=== PATIENT | female | born 1960 | race Caucasian/White ===

== ENCOUNTER 2022-03-14 18:20 | Inpatient (IN) | payer BC ==
[2022-03-14] MEDS: Carvedilol 3.125 MG TAB PO SCH (21:55)
[2022-03-14] MEDS: Gabapentin 400 MG CAP PO SCH (21:55)
[2022-03-14] MEDS: Hydroxychloroquine Sulfate 200 MG TAB PO SCH (21:55)
[2022-03-15 05:24] LABS: #Basophils 0.1 thou/uL (0.0-0.2); #Eosinphils 0.4 thou/uL (0.0-0.7); #Lymphocytes 1.1 thou/uL (1.20-3.40); #Monocytes 0.9 thou/uL (0.11-0.59); #Neutrophils 4.8 thou/uL (1.40-6.50); %Basophils 1.2 % (0.0-1.0); %Lymphocytes 14.7 % (21.0-51.0); %Monocytes 12.7 % (0.0-10.0); %Neutrophils 66.4 % (42.0-75.0); Hemoglobin 8.7 g/dL (12.0-16.0); Mean Corpuscular HGB CONC 33.7 g/dL (32.0-36.0); Mean Corpuscular Volume 97.9 fl (78.0-98.0); Mean Platelet Volume 9.6 fL (7.4-10.4); Platelet Count 222 10x3/uL (130-400); RBC Distribution Width 15.1 % (11.5-14.5); Red Blood Cell (RBC) Count 2.65 mill/uL (4.20-5.40); White Blood Cell (WBC) Count 7.2 10x3/uL (4.8-10.8)
[2022-03-15 05:56] LABS: Anion Gap 14 mmol/L (10-20); BUN (Urea Nitrogen) 16 mg/dL (9.8-20.1); Calc. Creatinine Clearance 83 mL/min (70-130); Calcium 8.7 mg/dL (7.8-10.44); Carbon Dioxide 24 mmol/L (23-31); Chloride 90 mmol/L (98-107); Estimated GFR 39; Glucose 74 mg/dL (80-115); Potassium 3.9 mmol/L (3.5-5.1); Sodium 124 mmol/L (136-145)
[2022-03-15] MEDS: predniSONE 5 MG TAB PO SCH (09:19)
[2022-03-15] MEDS: Potassium Chloride 10 MEQ TAB PO SCH (09:19)
[2022-03-15] MEDS: Spironolactone 25 MG TAB PO SCH (09:19)
[2022-03-15] MEDS: Hydroxychloroquine Sulfate 200 MG TAB PO SCH ×2 (09:20→20:12)
[2022-03-15] MEDS: Carvedilol 3.125 MG TAB PO SCH ×2 (09:20→20:12)
[2022-03-15] MEDS: Furosemide 40 MG TAB PO SCH (09:20)
[2022-03-15] MEDS: Gabapentin 400 MG CAP PO SCH ×3 (09:22→20:12)
[2022-03-16] MEDS: Spironolactone 25 MG TAB PO SCH (08:58)
[2022-03-16] MEDS: Carvedilol 3.125 MG TAB PO SCH ×2 (08:58→20:08)
[2022-03-16] MEDS: Gabapentin 400 MG CAP PO SCH ×3 (08:58→20:08)
[2022-03-16] MEDS: Hydroxychloroquine Sulfate 200 MG TAB PO SCH ×2 (08:59→20:08)
[2022-03-16] MEDS: Furosemide 40 MG TAB PO SCH (08:59)
[2022-03-16] MEDS: predniSONE 5 MG TAB PO SCH (08:59)
[2022-03-16] MEDS: Potassium Chloride 10 MEQ TAB PO SCH (09:02)
[2022-03-17] MEDS: Gabapentin 400 MG CAP PO SCH ×3 (09:07→20:19)
[2022-03-17] MEDS: Potassium Chloride 10 MEQ TAB PO SCH (09:07)
[2022-03-17] MEDS: Spironolactone 25 MG TAB PO SCH (09:07)
[2022-03-17] MEDS: Hydroxychloroquine Sulfate 200 MG TAB PO SCH ×2 (09:07→20:20)
[2022-03-17] MEDS: Furosemide 40 MG TAB PO SCH (09:07)
[2022-03-17] MEDS: Carvedilol 3.125 MG TAB PO SCH ×2 (09:07→20:20)
[2022-03-17] MEDS: predniSONE 5 MG TAB PO SCH (09:07)
[2022-03-17] MEDS: TOFACITINIB CITRATE 11 MG PO SCH (22:00)
[2022-03-18] MEDS: Carvedilol 3.125 MG TAB PO SCH ×2 (08:12→21:11)
[2022-03-18] MEDS: Potassium Chloride 10 MEQ TAB PO SCH (08:13)
[2022-03-18] MEDS: Gabapentin 400 MG CAP PO SCH ×3 (08:13→21:10)
[2022-03-18] MEDS: Spironolactone 25 MG TAB PO SCH (08:13)
[2022-03-18] MEDS: Hydroxychloroquine Sulfate 200 MG TAB PO SCH ×2 (08:13→21:10)
[2022-03-18] MEDS: predniSONE 5 MG TAB PO SCH (08:15)
[2022-03-18] MEDS: Furosemide 40 MG TAB PO SCH ×2 (10:30→13:58)
[2022-03-18] MEDS: TOFACITINIB CITRATE 11 MG PO SCH (21:15)
[2022-03-19 05:33] LABS: ALT (SGPT) 47 U/L (8-55); AST (SGOT) 43 U/L (5-34); Albumin 2.8 g/dL (3.4-4.8); Alkaline Phosphatase 71 U/L (40-110); Anion Gap 14 mmol/L (10-20); BUN (Urea Nitrogen) 18 mg/dL (9.8-20.1); Bilirubin, Total 1.8 mg/dL (0.2-1.2); Calc. Creatinine Clearance 69 mL/min (70-130); Calcium 8.8 mg/dL (7.8-10.44); Carbon Dioxide 26 mmol/L (23-31); Chloride 91 mmol/L (98-107); Estimated GFR 31; Globulin 2.8 g/dL (2.4-3.5); Glucose 71 mg/dL (80-115); Potassium 3.7 mmol/L (3.5-5.1); Protein, Total 5.6 g/dL (5.8-8.1); Sodium 127 mmol/L (136-145)
[2022-03-19 06:00] LABS: Band 5 % (5-11); Eosinophils 2 % (0-10); Hemoglobin 8.3 g/dL (12.0-16.0); Lymphocytes 14 % (21-51); MDiff Complete? YES; Mean Corpuscular HGB CONC 33.3 g/dL (32.0-36.0); Mean Platelet Volume 9.3 fL (7.4-10.4); Monocytes 8 % (0-10); Neutrophil 69 % (42-75); Platelet Count 229 10x3/uL (130-400); RBC Distribution Width 15.7 % (11.5-14.5); RBC Morphology Normal; Red Blood Cell (RBC) Count 2.51 mill/uL (4.20-5.40); White Blood Cell (WBC) Count 5.2 10x3/uL (4.8-10.8)
[2022-03-19] MEDS: Hydroxychloroquine Sulfate 200 MG TAB PO SCH ×2 (08:08→20:34)
[2022-03-19] MEDS: Carvedilol 3.125 MG TAB PO SCH ×2 (08:08→20:34)
[2022-03-19] MEDS: Potassium Chloride 10 MEQ TAB PO SCH (08:08)
[2022-03-19] MEDS: Spironolactone 25 MG TAB PO SCH (08:08)
[2022-03-19] MEDS: Gabapentin 400 MG CAP PO SCH ×2 (08:08→20:34)
[2022-03-19] MEDS: Furosemide 40 MG TAB PO SCH (13:13)
[2022-03-19] MEDS: TOFACITINIB CITRATE 11 MG PO SCH (20:35)
[2022-03-20] MEDS: Spironolactone 25 MG TAB PO SCH (08:44)
[2022-03-20] MEDS: Potassium Chloride 10 MEQ TAB PO SCH (08:44)
[2022-03-20] MEDS: Hydroxychloroquine Sulfate 200 MG TAB PO SCH ×2 (08:45→20:24)
[2022-03-20] MEDS: Carvedilol 3.125 MG TAB PO SCH ×2 (08:45→20:25)
[2022-03-20] MEDS: Gabapentin 400 MG CAP PO SCH ×2 (08:45→20:25)
[2022-03-20] MEDS: Furosemide 40 MG TAB PO SCH (13:01)
[2022-03-20] MEDS: TOFACITINIB CITRATE 11 MG PO SCH (20:25)
[2022-03-21] MEDS: Ondansetron ODT 4 MG TAB PO PRN (10:08)
[2022-03-21] MEDS: Hydroxychloroquine Sulfate 200 MG TAB PO SCH ×2 (11:18→20:48)
[2022-03-21] MEDS: Potassium Chloride 10 MEQ TAB PO SCH (11:18)
[2022-03-21] MEDS: Gabapentin 400 MG CAP PO SCH ×2 (11:18→20:49)
[2022-03-21] MEDS: Carvedilol 3.125 MG TAB PO SCH ×2 (11:18→20:49)
[2022-03-21] MEDS: TOFACITINIB CITRATE 11 MG PO SCH (20:49)
[2022-03-22] MEDS: Ondansetron ODT 4 MG TAB PO PRN ×2 (08:20→14:32)
[2022-03-22] MEDS: Carvedilol 3.125 MG TAB PO SCH (10:05)
[2022-03-22] MEDS: Hydroxychloroquine Sulfate 200 MG TAB PO SCH ×2 (10:07→20:35)
[2022-03-22] MEDS: Gabapentin 400 MG CAP PO SCH ×2 (10:07→20:35)
[2022-03-22] MEDS: Potassium Chloride 10 MEQ TAB PO SCH ×2 (10:07→13:24)
[2022-03-22] MEDS ORDERED: Furosemide 20 MG TAB PO SCH (13:00)
[2022-03-22] MEDS ORDERED: Furosemide 40 MG TAB PO SCH (13:00)
[2022-03-22] MEDS ORDERED: Potassium Chloride 10 MEQ TAB PO SCH (13:15)
[2022-03-22] MEDS: Furosemide 20 MG TAB PO SCH (13:23)
[2022-03-22] MEDS: TOFACITINIB CITRATE 11 MG PO SCH (20:37)
[2022-03-23] MEDS: Potassium Chloride 10 MEQ TAB PO SCH (07:44)
[2022-03-23] MEDS: Hydroxychloroquine Sulfate 200 MG TAB PO SCH ×2 (07:44→21:33)
[2022-03-23] MEDS: Gabapentin 400 MG CAP PO SCH ×2 (07:48→21:32)
[2022-03-23] MEDS: Furosemide 20 MG TAB PO SCH (12:15)
[2022-03-23] MEDS: Ondansetron ODT 4 MG TAB PO PRN (20:04)
[2022-03-23] MEDS ORDERED: Mag-Al Plus 1200 MG/1200 MG/120 MG/30 ML UDCUP PO PRN (21:21)
[2022-03-23] MEDS: Cyclobenzaprine 10 MG TAB PO PRN (21:33)
[2022-03-23] MEDS: TOFACITINIB CITRATE 11 MG PO SCH (21:34)
[2022-03-23] MEDS: traMADol HCl 50 MG TAB PO PRN (23:01)
[2022-03-24] MEDS: Gabapentin 400 MG CAP PO SCH ×2 (08:59→20:44)
[2022-03-24] MEDS: Hydroxychloroquine Sulfate 200 MG TAB PO SCH ×2 (08:59→20:43)
[2022-03-24] MEDS: Potassium Chloride 10 MEQ TAB PO SCH (08:59)
[2022-03-24] MEDS: Cyclobenzaprine 10 MG TAB PO PRN ×2 (10:08→20:43)
[2022-03-24] MEDS: Furosemide 20 MG TAB PO SCH (12:30)
[2022-03-24] MEDS: traMADol HCl 50 MG TAB PO PRN ×2 (12:32→20:44)
[2022-03-24] MEDS: TOFACITINIB CITRATE 11 MG PO SCH ×2 (20:45→20:48)
[2022-03-25] MEDS: Gabapentin 400 MG CAP PO SCH ×2 (09:16→21:26)
[2022-03-25] MEDS: Hydroxychloroquine Sulfate 200 MG TAB PO SCH ×2 (09:16→21:27)
[2022-03-25] MEDS: Potassium Chloride 10 MEQ TAB PO SCH (09:17)
[2022-03-25] MEDS: Cyclobenzaprine 10 MG TAB PO PRN ×2 (13:16→21:27)
[2022-03-25] MEDS: Furosemide 20 MG TAB PO SCH (13:17)
[2022-03-25] MEDS: traMADol HCl 50 MG TAB PO PRN (18:35)
[2022-03-25] MEDS: TOFACITINIB CITRATE 11 MG PO SCH (21:25)
[2022-03-26 05:40] LABS: Anion Gap 15 mmol/L (10-20); BUN (Urea Nitrogen) 12 mg/dL (9.8-20.1); Calc. Creatinine Clearance 65 mL/min (70-130); Calcium 9.1 mg/dL (7.8-10.44); Carbon Dioxide 25 mmol/L (23-31); Chloride 91 mmol/L (98-107); Estimated GFR 30; Glucose 65 mg/dL (80-115); Potassium 3.9 mmol/L (3.5-5.1); Sodium 127 mmol/L (136-145)
[2022-03-26] MEDS: traMADol HCl 50 MG TAB PO PRN ×2 (06:14→22:01)
[2022-03-26] MEDS: Cyclobenzaprine 10 MG TAB PO PRN ×2 (06:14→22:01)
[2022-03-26] MEDS: Gabapentin 400 MG CAP PO SCH ×2 (08:13→19:47)
[2022-03-26] MEDS: Potassium Chloride 10 MEQ TAB PO SCH (08:13)
[2022-03-26] MEDS: Hydroxychloroquine Sulfate 200 MG TAB PO SCH ×2 (08:13→19:47)
[2022-03-26] MEDS: Furosemide 20 MG TAB PO SCH (12:11)
[2022-03-26] MEDS: TOFACITINIB CITRATE 11 MG PO SCH (19:47)
[2022-03-27] MEDS: Hydroxychloroquine Sulfate 200 MG TAB PO SCH ×2 (08:48→21:04)
[2022-03-27] MEDS: Gabapentin 400 MG CAP PO SCH ×2 (08:48→21:04)
[2022-03-27] MEDS: Potassium Chloride 10 MEQ TAB PO SCH (08:48)
[2022-03-27] MEDS: Furosemide 20 MG TAB PO SCH (13:28)
[2022-03-27] MEDS: traMADol HCl 50 MG TAB PO PRN (21:05)
[2022-03-27] MEDS: Cyclobenzaprine 10 MG TAB PO PRN (21:05)
[2022-03-27] MEDS: TOFACITINIB CITRATE 11 MG PO SCH (21:06)
[2022-03-28] MEDS: Hydroxychloroquine Sulfate 200 MG TAB PO SCH ×2 (08:49→20:15)
[2022-03-28] MEDS: Potassium Chloride 10 MEQ TAB PO SCH (08:49)
[2022-03-28] MEDS: Gabapentin 400 MG CAP PO SCH ×2 (08:49→20:13)
[2022-03-28] MEDS: Furosemide 20 MG TAB PO SCH (13:03)
[2022-03-28] MEDS: traMADol HCl 50 MG TAB PO PRN (20:14)
[2022-03-28] MEDS: Cyclobenzaprine 10 MG TAB PO PRN (20:15)
[2022-03-28] MEDS: TOFACITINIB CITRATE 11 MG PO SCH (20:16)
[2022-03-29] MEDS: Gabapentin 400 MG CAP PO SCH ×2 (08:50→20:49)
[2022-03-29] MEDS: Potassium Chloride 10 MEQ TAB PO SCH (08:50)
[2022-03-29] MEDS: Hydroxychloroquine Sulfate 200 MG TAB PO SCH ×2 (08:50→20:47)
[2022-03-29 10:48] VITALS: BMI 48.7
[2022-03-29] MEDS: Furosemide 20 MG TAB PO SCH (12:33)
[2022-03-29] MEDS: traMADol HCl 50 MG TAB PO PRN ×2 (14:37→20:49)
[2022-03-29] MEDS: Cyclobenzaprine 10 MG TAB PO PRN (20:47)
[2022-03-29] MEDS: TOFACITINIB CITRATE 11 MG PO SCH (20:48)
[2022-03-30] MEDS: traMADol HCl 50 MG TAB PO PRN ×3 (04:22→21:24)
[2022-03-30] MEDS: Potassium Chloride 10 MEQ TAB PO SCH (09:48)
[2022-03-30] MEDS: Hydroxychloroquine Sulfate 200 MG TAB PO SCH ×2 (09:48→20:28)
[2022-03-30] MEDS: Gabapentin 400 MG CAP PO SCH ×2 (09:48→20:27)
[2022-03-30] MEDS: Furosemide 20 MG TAB PO SCH (12:49)
[2022-03-30] MEDS: TOFACITINIB CITRATE 11 MG PO SCH (20:27)
[2022-03-30] MEDS: Cyclobenzaprine 10 MG TAB PO PRN (20:28)
[2022-03-31] MEDS: traMADol HCl 50 MG TAB PO PRN ×2 (04:44→20:17)
[2022-03-31] MEDS: Cyclobenzaprine 10 MG TAB PO PRN ×2 (06:49→20:17)
[2022-03-31] MEDS: Gabapentin 400 MG CAP PO SCH ×2 (08:59→20:18)
[2022-03-31] MEDS: Potassium Chloride 10 MEQ TAB PO SCH (08:59)
[2022-03-31] MEDS: Hydroxychloroquine Sulfate 200 MG TAB PO SCH ×2 (08:59→20:16)
[2022-03-31] MEDS: Furosemide 20 MG TAB PO SCH (12:34)
[2022-03-31] MEDS: TOFACITINIB CITRATE 11 MG PO SCH (20:19)
[2022-04-01] MEDS: traMADol HCl 50 MG TAB PO PRN ×2 (05:13→16:30)
[2022-04-01 05:58] LABS: Hemoglobin 8.4 g/dL (12.0-16.0); Mean Corpuscular HGB CONC 32.8 g/dL (32.0-36.0); Mean Corpuscular Hemoglobin 33.1 pg (27.0-31.0); Mean Corpuscular Volume 100.7 fl (78.0-98.0); Mean Platelet Volume 7.3 fL (7.4-10.4); Platelet Count 235 10x3/uL (130-400); RBC Distribution Width 15.1 % (11.5-14.5); Red Blood Cell (RBC) Count 2.53 mill/uL (4.20-5.40); White Blood Cell (WBC) Count 7.8 10x3/uL (4.8-10.8)
[2022-04-01 06:25] LABS: ALT (SGPT) 31 U/L (8-55); AST (SGOT) 31 U/L (5-34); Albumin 2.8 g/dL (3.4-4.8); Alkaline Phosphatase 97 U/L (40-110); Anion Gap 13 mmol/L (10-20); BUN (Urea Nitrogen) 10 mg/dL (9.8-20.1); Bilirubin, Total 1.5 mg/dL (0.2-1.2); Calc. Creatinine Clearance 58 mL/min (70-130); Calcium 8.8 mg/dL (7.8-10.44); Carbon Dioxide 26 mmol/L (23-31); Chloride 91 mmol/L (98-107); Estimated GFR 26; Globulin 2.5 g/dL (2.4-3.5); Glucose 72 mg/dL (80-115); Potassium 4.1 mmol/L (3.5-5.1); Protein, Total 5.3 g/dL (5.8-8.1); Sodium 126 mmol/L (136-145)
[2022-04-01] MEDS: Cyclobenzaprine 10 MG TAB PO PRN ×2 (09:13→21:06)
[2022-04-01] MEDS: Hydroxychloroquine Sulfate 200 MG TAB PO SCH ×2 (09:14→20:52)
[2022-04-01] MEDS: Potassium Chloride 10 MEQ TAB PO SCH (09:14)
[2022-04-01] MEDS: Gabapentin 400 MG CAP PO SCH (09:16)
[2022-04-01] MEDS: Furosemide 20 MG TAB PO SCH (12:48)
[2022-04-01] MEDS: Gabapentin 300 MG CAP PO SCH (20:53)
[2022-04-01] MEDS: TOFACITINIB CITRATE 11 MG PO SCH (20:54)
[2022-04-02] MEDS: traMADol HCl 50 MG TAB PO PRN ×2 (03:23→17:30)
[2022-04-02] MEDS: Hydroxychloroquine Sulfate 200 MG TAB PO SCH ×2 (08:49→20:52)
[2022-04-02] MEDS: Potassium Chloride 10 MEQ TAB PO SCH (08:49)
[2022-04-02] MEDS: Gabapentin 300 MG CAP PO SCH ×2 (08:49→20:59)
[2022-04-02] MEDS: Furosemide 20 MG TAB PO SCH (14:05)
[2022-04-02] MEDS: Cyclobenzaprine 10 MG TAB PO PRN (20:52)
[2022-04-02] MEDS: TOFACITINIB CITRATE 11 MG PO SCH (20:53)
[2022-04-03] MEDS: traMADol HCl 50 MG TAB PO PRN ×2 (00:52→20:30)
[2022-04-03] MEDS: Cyclobenzaprine 10 MG TAB PO PRN ×2 (06:44→17:00)
[2022-04-03] MEDS: Potassium Chloride 10 MEQ TAB PO SCH (09:01)
[2022-04-03] MEDS: Hydroxychloroquine Sulfate 200 MG TAB PO SCH ×2 (09:01→20:30)
[2022-04-03] MEDS: Gabapentin 300 MG CAP PO SCH ×2 (09:02→20:29)
[2022-04-03] MEDS: Furosemide 20 MG TAB PO SCH (13:05)
[2022-04-03] MEDS: TOFACITINIB CITRATE 11 MG PO SCH (20:31)
[2022-04-04] MEDS: Cyclobenzaprine 10 MG TAB PO PRN ×2 (03:10→20:17)
[2022-04-04] MEDS: traMADol HCl 50 MG TAB PO PRN ×2 (06:54→20:17)
[2022-04-04] MEDS: Gabapentin 300 MG CAP PO SCH ×2 (09:37→20:14)
[2022-04-04] MEDS: Hydroxychloroquine Sulfate 200 MG TAB PO SCH ×2 (09:38→20:14)
[2022-04-04] MEDS: Potassium Chloride 10 MEQ TAB PO SCH (09:38)
[2022-04-04] MEDS: Furosemide 20 MG TAB PO SCH (12:33)
[2022-04-04] MEDS: TOFACITINIB CITRATE 11 MG PO SCH (20:15)
[2022-04-05] MEDS: Gabapentin 300 MG CAP PO SCH ×2 (08:41→20:22)
[2022-04-05] MEDS: Hydroxychloroquine Sulfate 200 MG TAB PO SCH ×2 (08:41→20:23)
[2022-04-05] MEDS: Potassium Chloride 10 MEQ TAB PO SCH (08:41)
[2022-04-05] MEDS: Furosemide 20 MG TAB PO SCH (16:11)
[2022-04-05] MEDS: TOFACITINIB CITRATE 11 MG PO SCH (20:21)
[2022-04-05] MEDS: traMADol HCl 50 MG TAB PO PRN (20:23)
[2022-04-05] MEDS: Cyclobenzaprine 10 MG TAB PO PRN (20:23)
[2022-04-06] MEDS: traMADol HCl 50 MG TAB PO PRN (06:29)
[2022-04-06] MEDS: Gabapentin 300 MG CAP PO SCH ×2 (08:58→20:28)
[2022-04-06] MEDS: Hydroxychloroquine Sulfate 200 MG TAB PO SCH ×2 (08:59→20:28)
[2022-04-06] MEDS: Potassium Chloride 10 MEQ TAB PO SCH (08:59)
[2022-04-06] MEDS: Cyclobenzaprine 10 MG TAB PO PRN (09:01)
[2022-04-06] MEDS: Furosemide 20 MG TAB PO SCH (15:07)
[2022-04-06] MEDS: TOFACITINIB CITRATE 11 MG PO SCH (20:27)
[2022-04-07] MEDS: Potassium Chloride 10 MEQ TAB PO SCH (08:57)
[2022-04-07] MEDS: Hydroxychloroquine Sulfate 200 MG TAB PO SCH (08:57)
[2022-04-07] MEDS: Gabapentin 300 MG CAP PO SCH (08:57)
[2022-04-07 12:48] VITALS: BP 117/73; TEMP 97.8
[2022-04-07] MEDS: Furosemide 20 MG TAB PO SCH (13:42)
== END 2022-04-07 13:35 | disposition home health service (06) | DRG 948 ==
LOC: MADMS 18:20
PROVIDERS: ADMIT Family Medicine; ATTEND Family Medicine
DX: R53.1 Weakness (principal); I13.0 Hypertensive heart and chronic kidney disease with heart failure and stage 1 through stage 4 chronic kidney disease, or unspecified chronic kidney disease; I50.32 Chronic diastolic (congestive) heart failure; Z68.43 Body mass index [BMI] 50.0-59.9, adult; N17.9 Acute kidney failure, unspecified; I50.9 Heart failure, unspecified; N18.30 Chronic kidney disease, stage 3 unspecified; D63.1 Anemia in chronic kidney disease; J45.909 Unspecified asthma, uncomplicated; E66.01 Morbid (severe) obesity due to excess calories; F17.210 Nicotine dependence, cigarettes, uncomplicated; R53.81 Other malaise; E87.8 Other disorders of electrolyte and fluid balance, not elsewhere classified; I89.0 Lymphedema, not elsewhere classified; K60.3 Anal fistula; I95.1 Orthostatic hypotension; M62.838 Other muscle spasm; E03.9 Hypothyroidism, unspecified; M06.9 Rheumatoid arthritis, unspecified; Z98.890 Other specified postprocedural states; Z79.899 Other long term (current) drug therapy; Z88.8 Allergy status to other drugs, medicaments and biological substances; Z91.048 Other nonmedicinal substance allergy status; Z82.49 Family history of ischemic heart disease and other diseases of the circulatory system; Z86.16 Personal history of COVID-19
CPT/HCPCS: 36415; 80048; 80053; 82728; 85025; 85027; 97602; J7512; Q0162